=== PATIENT | female | born 1990 | race Caucasian/White ===

== ENCOUNTER 2018-10-06 19:05 | Emergency (ER) | payer SELFPAY ==
[~2018-10-06] VITALS: Ht 157.5 cm; Wt 81.8 kg
[2018-10-06 21:18] VITALS: BP 136/78
== END 2018-10-06 21:20 | disposition home or self-care (01) ==
LOC: EMS 19:06
DX: M25.572 Pain in left ankle and joints of left foot (principal); M79.89 Other specified soft tissue disorders